=== PATIENT | male | born 1975 | race Caucasian/White ===

== ENCOUNTER 2017-09-26 08:32 | Emergency (ER) | payer SELFPAY ==
[~2017-09-26] VITALS: Ht 177.8 cm; Wt 81.6 kg
[2017-09-26 08:40] VITALS: TEMP 36.7; Ht 177.8 cm; Wt 81.6 kg
[2017-09-26] MEDS ORDERED: XYLOCAINE 1%/SOD BICARB 20 ML VIAL INFIL ONE (08:45)
[2017-09-26] MEDS ORDERED: ONDANSETRON 4MG OD TAB ONE (08:49)
[2017-09-26] MEDS ORDERED: KETOROLAC TROMETHAMINE 60 MG/2 ML VIAL IM STA (09:04)
--- NOTE | 2017-09-26 09:06 | DIAGNOSTIC IMAGING REPORT ---
R HAND MIN 3 VIEWS ROUTINE HISTORY: 41 years-old Male Laceration right second third and fourth fingers acute laceration of the right second, third and fourth fingers COMPARISON: None available TECHNIQUE: 3 views of the right hand FINDINGS: There is mild soft tissue swelling with skin irregularity and subcutaneous emphysema about the medial portions of the second, third and fourth distal fingers compatible with laceration. No acute fracture or dislocation. 1 mm linear radiodensity is seen within the lateral soft tissues adjacent to the second distal phalanx. Remote fracture of the mid pole scaphoid is noted which is fixated by a cannulated screw. Additionally, there is a small screw fragment noted within the distal pole scaphoid. Transversely oriented lucency of the scaphoid with peripherally sclerotic margins is noted. Corticated bone fragments about the lateral aspect of the distal radius suggests sequela of remote trauma. Mild first carpometacarpal and triscaphe osteoarthritis. IMPRESSION: 1. Mild soft tissue swelling with skin lacerations of the distal medial portions of the second, third and fourth fingers. 1 mm radiodensity within the lateral soft tissues adjacent to the second distal phalanx may reflect foreign body. 2. No acute fracture or dislocation. 3. Fixated remote fracture of the mid pole scaphoid. Peripherally sclerotic lucency involving the scaphoid waist suggests possible chronic nonunion. The above report was generated using voice recognition software. It may contain grammatical, syntax or spelling errors. Electronically signed by: Alfa Nathan M.D. 09/26/2017 9:05 AM Dictated Date/Time: 09/26/2017 8:59 AM
--- NOTE | 2017-09-26 10:54 | EMERGENCY ROOM VISIT NOTE ---
ED Visit Note First contact with patient: 08:38 CHIEF COMPLAINT: Right second third and fourth finger lacerations HISTORY OF PRESENT ILLNESS: This 41-year-old male presents to ER with chief complaint of lacerations to his right second third and fourth fingers. The patient states that he was using a table saw and accidentally cut into his right hand. The patient is left-hand dominant. The patient's tetanus is up-to- date. The patient states he is able to move his fingers without difficulty. He does admit that he has some numbness at the tips of those fingers. REVIEW OF SYSTEMS: Six-hour PMH: The patient is healthy; there is no significant medical or surgical history. SOCIAL HISTORY: Patient lives at home. PHYSICAL EXAM: Vital Signs: Were reviewed reviewed Nurse's notes. GENERAL: 41- year-old male appears in no acute distress. MENTAL Status: Alert and oriented 3. RIGHT HAND: There are soft tissue lacerations involving the second third and fourth distal phalanx. Each laceration is approximately 4 cm in length. No deep structures are visualized. No tendon involvement is noted. The patient is able to flex and extend all fingers without difficulty. Slight decreased sensation over the distal tips of the second through fourth digits. EMERGENCY DEPARTMENT COURSE: Patient was evaluated. The patient was given Toradol 60 mg IM. The patient was given Zofran 4 mg ODT for nausea. X-ray of the right hand was ordered interpreted by the radiologist and myself. DIAGNOSTICS:R HAND MIN 3 VIEWS ROUTINE HISTORY: 41 years-old Male Laceration right second third and fourth fingers acute laceration of the right second, third and fourth fingers COMPARISON: None available TECHNIQUE: 3 views of the right hand FINDINGS: There is mild soft tissue swelling with skin irregularity and subcutaneous emphysema about the medial portions of the second, third and fourth distal fingers compatible with laceration. No acute fracture or dislocation. 1 mm linear radiodensity is seen within the lateral soft tissues adjacent to the second distal phalanx. Remote fracture of the mid pole scaphoid is noted which is fixated by a cannulated screw. Additionally, there is a small screw fragment noted within the distal pole scaphoid. Transversely oriented lucency of the scaphoid with peripherally sclerotic margins is noted. Corticated bone fragments about the lateral aspect of the distal radius suggests sequela of remote trauma. Mild first carpometacarpal and triscaphe osteoarthritis. IMPRESSION: 1. Mild soft tissue swelling with skin lacerations of the distal medial portions of the second, third and fourth fingers. 1 mm radiodensity within the lateral soft tissues adjacent to the second distal phalanx may reflect foreign body. 2. No acute fracture or dislocation. 3. Fixated remote fracture of the mid pole scaphoid. Peripherally sclerotic lucency involving the scaphoid waist suggests possible chronic nonunion. The above report was generated using voice recognition software. It may contain grammatical, syntax or spelling errors. Electronically signed by: Alfa Nathan M.D. PROCEDURES: Wound Repair: Complexity: Complex Verbal consent was obtained after the risks and benefits were explained, including but not limited to bleeding, scarring, infection, pain, and bone/joint /nerve damage. The skin was prepped with betadine and a sterile field set. The wounds was anesthetized with a total of 15 ml of 1% buffered lidocaine. With direct pressure the bleeding subsided. Copious irrigation was performed using sterile saline. The wound was explored for foreign bodies and none found. Debridement was not performed. The wound edges were approximated using 5-0 Ethilon a total of 25 simple interrupted sutures 3 of which are through the nailbed.. Hemostasis and excellent approximation was achieved. Antibacterial ointment and a sterile dressing applied. Detailed wound care instructions and signs and symptoms of infection reviewed with the patient. No complications and the patient tolerated the procedure well. The patient was offered finger splints but he declined. The patient was discharged to home in stable condition. DIAGNOSIS: 3 individual4 cm finger lacerations of the right hand. DISCHARGE INSTRUCTIONS & TREATMENT: Keep hand elevated as much as possible over the next 24 hours. Ibuprofen 600 mg every 6 hours with food for pain. Take [place] as needed for more severe pain. Do not drive while taking the [place]. Take Keflex as prescribed. Recommend follow-up with Dr. Persaud at [facility] for recheck. Suture removal in 12 days. Any signs of infection, follow-up with your family doctor or return to ER. Allergies Coded Allergies: No Known Allergies (Unverified , 09/26/17) Vital Signs Date Time Temp Pulse Resp B/P (MAP) Pulse Ox O2 Delivery O2 Flow Rate FiO2 09/26/17 08:42 162/85 09/26/17 08:40 36.7 82 22 97 Room Air Medications Administered Medications (Trade) Dose Ordered Sig/Fredy Route Start Time Stop Time Status Last Admin Dose Admin Lidocaine HCl (Buffered Lidocaine 1% Inj) 20 ml NOW ONCE INFIL 09/26/17 08:45 09/26/17 08:46 DC 09/26/17 08:45 20 ML Ondansetron HCl (Zofran Odt) 4 mg STK-MED ONCE .ROUTE 09/26/17 08:49 09/26/17 08:50 DC 09/26/17 08:51 4 MG Ketorolac Tromethamine (Toradol Inj) 60 mg NOW STAT IM 09/26/17 09:04 09/26/17 09:05 DC 09/26/17 09:08 60 MG Departure Information Referrals No Doctor, Assigned (PCP) Patient Instructions [facility]
[2017-09-26] MEDS ORDERED: HYDR-5688 PO (10:58)
[2017-09-26] MEDS ORDERED: CEPH500C2 PO (10:58)
[2017-09-26 11:33] VITALS: BP 160/84; PULSE 88; O2SAT 100
== END 2017-09-26 11:34 | disposition home or self-care (01) ==
LOC: C.EDB 08:34 → C.EDA 11:34
DX: S61.212A Laceration without foreign body of right middle finger without damage to nail, initial encounter (principal); S61.214A Laceration without foreign body of right ring finger without damage to nail, initial encounter; W31.2XXA Contact with powered woodworking and forming machines, initial encounter; Z23 Encounter for immunization